=== PATIENT | male | born 1945 | race Caucasian/White ===

== ENCOUNTER 2021-01-11 16:14 | Inpatient (IN) | payer MEDICARE ==
[2021-01-11] VITALS (23 sets, daily range): BP systolic 57–80; BP diastolic 32–48
[~2021-01-11] VITALS: Ht 172.7 cm; Wt 52.4 kg
[2021-01-11] MEDS ORDERED: ZESTORETIC 20-1 EAC1 PO (16:23)
[2021-01-11] MEDS ORDERED: NORVASC10 MG PO (16:23)
[2021-01-11] MEDS ORDERED: COMBIVENT RESPIM4 GM INH (16:25)
[2021-01-11] MEDS ORDERED: SYMB160 PO (16:25)
[2021-01-11 17:29] LABS: MEAN CELL VOLUME 96.5 fl (80.0-94.0); MEAN CORPUSCULAR HGB 31.2 pg (27.0-31.0); MEAN CORPUSCULAR HGB CONC 32.3 g/dl (33.0-37.0); MEAN PLATELET VOLUME 9.1 fl (9.6-12.3); NUCLEATED RED BLOOD CELL 0.1 10*3/uL (0.0-0.0); NUCLEATED RED BLOOD CELL 0.5 % (0.0-0.0); PLATELET COUNT AUTOMATED 419 10*3/uL (130-400); RED BLOOD COUNT 1.73 10*6/uL (4.50-5.90); RED CELL DISTRI WIDTH 16.2 % (0-14.5); WHITE BLOOD COUNT 22.3 10*3/uL (4.8-10.8)
[2021-01-11 17:38] LABS: INTERNATIONAL NORM RATIO 1.1 (2.0-3.5)
[2021-01-11 17:45] LABS: ALBUMIN 2.6 gm/dl (3.1-4.5); ALKALINE PHOSPHATASE 59 U/L (45-117); BUN 83 mg/dl (7-24); CHLORIDE 90 mmol/L (98-107); CREATININE 1.76 mg/dL (0.70-1.30); SGOT/AST 140 IU/L (3-35); SGPT/ALT 76 U/L (12-78); SODIUM 126 mmol/L (136-145); TOTAL PROTEIN 5.5 gm/dL (6.4-8.2)
[2021-01-11 17:46] LABS: TROPONIN I < 0.015 ng/ml (<0.045)
[2021-01-11 17:48] LABS: HEMATOCRIT 16.7 % (42.0-52.0)
[2021-01-11 17:51] LABS: PLATELET SUFFICIENCY HIGH (NORMAL); TOTAL CELLS COUNTED 100 #CELLS
[2021-01-11 17:52] LABS: TARGET CELLS FEW
[2021-01-11 17:53] LABS: MICROCYTOSIS SLIGHT
[2021-01-11 20:49] LABS: BILIRUBIN Negative (Negative); BLOOD 1+ (Negative); CLARITY Clear (Clear); COLOR Yellow (Yellow); GLUCOSE Negative (Negative); KETONE Negative (Negative); LEUKO ESTERASE Negative (Negative); NITRITE Negative (Negative); SPECIFIC GRAVITY 1.015 (1.001-1.030); UROBILINOGEN 0.2 E.U./dl (0.0-1.0)
[2021-01-11 21:01] LABS: BACTERIA 1+; RBC 0-2 rbc/hpf (0-2)
[2021-01-11] MEDS ORDERED: NASAL SPRAY ORI30 ML NAS (22:58)
[2021-01-12] VITALS (16 sets, daily range): BP systolic 67–88; BP diastolic 37–56
[2021-01-12 00:19] LABS: HEMATOCRIT 24.3 % (42.0-52.0); MEAN CELL VOLUME 94.9 fl (80.0-94.0); MEAN CORPUSCULAR HGB 30.9 pg (27.0-31.0); MEAN CORPUSCULAR HGB CONC 32.5 g/dl (33.0-37.0); MEAN PLATELET VOLUME 8.9 fl (9.6-12.3); NUCLEATED RED BLOOD CELL 0.1 10*3/uL (0.0-0.0); NUCLEATED RED BLOOD CELL 0.6 % (0.0-0.0); PLATELET COUNT AUTOMATED 350 10*3/uL (130-400); RED BLOOD COUNT 2.56 10*6/uL (4.50-5.90); RED CELL DISTRI WIDTH 15.7 % (0-14.5); WHITE BLOOD COUNT 19.6 10*3/uL (4.8-10.8)
[2021-01-12 00:39] LABS: PLATELET SUFFICIENCY NORMAL (NORMAL); POLYCHROMASIA SLIGHT; TOTAL CELLS COUNTED 100 #CELLS
[2021-01-12 04:57] LABS: ALBUMIN 2.3 gm/dl (3.1-4.5); ALKALINE PHOSPHATASE 56 U/L (45-117); CHLORIDE 98 mmol/L (98-107); CHOLESTEROL 84 mg/dL (<200); CREATININE 1.19 mg/dL (0.70-1.30); FREE T4 1.08 ng/dl (0.76-1.46); HDL CHOLESTEROL 49 mg/dl (40-60); LDL CHOLESTEROL 20 mg/dL (9-159); POTASSIUM 3.9 mmol/L (3.5-5.1); SGOT/AST 162 IU/L (3-35); SGPT/ALT 87 U/L (12-78); SODIUM 131 mmol/L (136-145); TOTAL PROTEIN 5.1 gm/dL (6.4-8.2); TRIGLYCERIDES 75 mg/dl (<150); VLDL CHOLESTEROL 15 mg/dL (6-40)
[2021-01-12 05:03] LABS: THYROID STIM HORMONE (HS) 0.829 uIU/ml (0.358-4.75)
[2021-01-12 05:13] LABS: BUN 63 mg/dl (7-24)
[2021-01-12 06:15] LABS: ACT PARTIAL THROMBO TIME 33.3 SECONDS (20.0-32.1)
[2021-01-12 06:20] LABS: HEMATOCRIT 22.9 % (42.0-52.0); MEAN CELL VOLUME 94.2 fl (80.0-94.0); MEAN CORPUSCULAR HGB 30.5 pg (27.0-31.0); MEAN CORPUSCULAR HGB CONC 32.3 g/dl (33.0-37.0); MEAN PLATELET VOLUME 9.5 fl (9.6-12.3); NUCLEATED RED BLOOD CELL 0.2 10*3/uL (0.0-0.0); NUCLEATED RED BLOOD CELL 0.8 % (0.0-0.0); PLATELET COUNT AUTOMATED 366 10*3/uL (130-400); RED BLOOD COUNT 2.43 10*6/uL (4.50-5.90); RED CELL DISTRI WIDTH 15.5 % (0-14.5); WHITE BLOOD COUNT 17.9 10*3/uL (4.8-10.8)
[2021-01-12 07:15] LABS: VITAMIN D, 25-HYDROXY 10.2 ng/mL (30-100)
[2021-01-12 07:17] LABS: TOTAL CELLS COUNTED 100 #CELLS
[2021-01-12 07:18] LABS: BURR CELLS FEW; PLATELET SUFFICIENCY NORMAL (NORMAL); POLYCHROMASIA SLIGHT; TARGET CELLS FEW; TOXIC GRANULATION SLIGHT
[2021-01-12 14:45] LABS: HEMATOCRIT 26.7 % (42.0-52.0)
[2021-01-12 22:24] LABS: HEMATOCRIT 26.8 % (42.0-52.0); MEAN CORPUSCULAR HGB 30.1 pg (27.0-31.0); MEAN CORPUSCULAR HGB CONC 31.7 g/dl (33.0-37.0); MEAN PLATELET VOLUME 9.4 fl (9.6-12.3); NUCLEATED RED BLOOD CELL 0.2 10*3/uL (0.0-0.0); NUCLEATED RED BLOOD CELL 1.9 % (0.0-0.0); PLATELET COUNT AUTOMATED 324 10*3/uL (130-400); RED BLOOD COUNT 2.82 10*6/uL (4.50-5.90); RED CELL DISTRI WIDTH 16.1 % (0-14.5); WHITE BLOOD COUNT 12.7 10*3/uL (4.8-10.8)
[2021-01-12 22:51] LABS: PLATELET SUFFICIENCY NORMAL (NORMAL); TOTAL CELLS COUNTED 100 #CELLS
[2021-01-12 22:52] LABS: BURR CELLS MODERATE; POLYCHROMASIA SLIGHT
[2021-01-13] VITALS (13 sets, daily range): BP systolic 84–126; BP diastolic 42–90
[2021-01-13 05:02] LABS: ALBUMIN 2.2 gm/dl (3.1-4.5); ALKALINE PHOSPHATASE 56 U/L (45-117); CHLORIDE 106 mmol/L (98-107); CREATININE 0.81 mg/dL (0.70-1.30); POTASSIUM 3.9 mmol/L (3.5-5.1); SGOT/AST 111 IU/L (3-35); SGPT/ALT 98 U/L (12-78); SODIUM 137 mmol/L (136-145); TOTAL PROTEIN 4.9 gm/dL (6.4-8.2)
[2021-01-13 05:03] LABS: BUN 29 mg/dl (7-24)
[2021-01-13 06:14] LABS: HEMATOCRIT 25.5 % (42.0-52.0); MEAN CELL VOLUME 94.4 fl (80.0-94.0); MEAN CORPUSCULAR HGB 30.4 pg (27.0-31.0); MEAN CORPUSCULAR HGB CONC 32.2 g/dl (33.0-37.0); MEAN PLATELET VOLUME 9.4 fl (9.6-12.3); NUCLEATED RED BLOOD CELL 0.4 10*3/uL (0.0-0.0); NUCLEATED RED BLOOD CELL 3.1 % (0.0-0.0); PLATELET COUNT AUTOMATED 340 10*3/uL (130-400)
[2021-01-13 06:45] LABS: BURR CELLS MODERATE; PLATELET SUFFICIENCY NORMAL (NORMAL); POLYCHROMASIA SLIGHT; TARGET CELLS FEW; TOTAL CELLS COUNTED 100 #CELLS
[2021-01-13 06:46] LABS: SCHISTOCYTES FEW
[2021-01-13 19:42] LABS: HEMATOCRIT 29.9 % (42.0-52.0); MEAN CELL VOLUME 94.3 fl (80.0-94.0); MEAN CORPUSCULAR HGB 30.3 pg (27.0-31.0); MEAN CORPUSCULAR HGB CONC 32.1 g/dl (33.0-37.0); NUCLEATED RED BLOOD CELL 0.7 10*3/uL (0.0-0.0); NUCLEATED RED BLOOD CELL 4.2 % (0.0-0.0); PLATELET COUNT AUTOMATED 326 10*3/uL (130-400); RED CELL DISTRI WIDTH 15.8 % (0-14.5); WHITE BLOOD COUNT 15.6 10*3/uL (4.8-10.8)
[2021-01-13 19:45] LABS: RED BLOOD COUNT 3.18 10*6/uL (4.50-5.90)
[2021-01-13 20:03] LABS: PLATELET SUFFICIENCY NORMAL (NORMAL); TOTAL CELLS COUNTED 100 #CELLS
[2021-01-13 20:04] LABS: BURR CELLS FEW
[2021-01-14] VITALS: BP 95/60
[2021-01-14 00:27] LABS: HEMATOCRIT 28.2 % (42.0-52.0); MEAN CORPUSCULAR HGB CONC 31.9 g/dl (33.0-37.0); MEAN PLATELET VOLUME 8.8 fl (9.6-12.3); NUCLEATED RED BLOOD CELL 0.6 10*3/uL (0.0-0.0); NUCLEATED RED BLOOD CELL 4.1 % (0.0-0.0); PLATELET COUNT AUTOMATED 306 10*3/uL (130-400); RED CELL DISTRI WIDTH 15.7 % (0-14.5); WHITE BLOOD COUNT 15.3 10*3/uL (4.8-10.8)
[2021-01-14 00:46] LABS: PLATELET SUFFICIENCY NORMAL (NORMAL); TOTAL CELLS COUNTED 100 #CELLS
[2021-01-14 04:00] VITALS: BP 98/53
[2021-01-14 06:44] LABS: HEMATOCRIT 30.2 % (42.0-52.0); MEAN CELL VOLUME 95.3 fl (80.0-94.0); MEAN CORPUSCULAR HGB CONC 31.5 g/dl (33.0-37.0); MEAN PLATELET VOLUME 9.1 fl (9.6-12.3); NUCLEATED RED BLOOD CELL 0.7 10*3/uL (0.0-0.0); NUCLEATED RED BLOOD CELL 4.4 % (0.0-0.0); PLATELET COUNT AUTOMATED 332 10*3/uL (130-400); RED BLOOD COUNT 3.17 10*6/uL (4.50-5.90); RED CELL DISTRI WIDTH 15.6 % (0-14.5); WHITE BLOOD COUNT 15.6 10*3/uL (4.8-10.8)
[2021-01-14 06:55] LABS: ALBUMIN 2.3 gm/dl (3.1-4.5); ALKALINE PHOSPHATASE 58 U/L (45-117); CHLORIDE 103 mmol/L (98-107); POTASSIUM 4.1 mmol/L (3.5-5.1); SGOT/AST 66 IU/L (3-35); SGPT/ALT 103 U/L (12-78); SODIUM 136 mmol/L (136-145); TOTAL PROTEIN 5.1 gm/dL (6.4-8.2)
[2021-01-14 06:57] LABS: BUN 17 mg/dl (7-24)
[2021-01-14 07:43] LABS: PLATELET SUFFICIENCY NORMAL (NORMAL); POLYCHROMASIA SLIGHT; TOTAL CELLS COUNTED 100 #CELLS
[2021-01-14 08:00] VITALS: BP 104/68
[2021-01-14 12:00] VITALS: BP 110/63
[2021-01-14 12:53] LABS: HEMATOCRIT 33.7 % (42.0-52.0); MEAN CORPUSCULAR HGB 30.2 pg (27.0-31.0); MEAN CORPUSCULAR HGB CONC 31.5 g/dl (33.0-37.0); NUCLEATED RED BLOOD CELL 0.5 10*3/uL (0.0-0.0); NUCLEATED RED BLOOD CELL 2.9 % (0.0-0.0); PLATELET COUNT AUTOMATED 358 10*3/uL (130-400); RED BLOOD COUNT 3.51 10*6/uL (4.50-5.90); RED CELL DISTRI WIDTH 15.6 % (0-14.5); WHITE BLOOD COUNT 16.7 10*3/uL (4.8-10.8)
[2021-01-14 13:37] LABS: PLATELET SUFFICIENCY NORMAL (NORMAL); POLYCHROMASIA MODERATE; SCHISTOCYTES FEW; TOTAL CELLS COUNTED 100 #CELLS
[2021-01-14 16:00] VITALS: BP 98/42
[2021-01-14 18:03] LABS: HEMATOCRIT 32.1 % (42.0-52.0); MEAN CELL VOLUME 95.5 fl (80.0-94.0); MEAN CORPUSCULAR HGB 30.4 pg (27.0-31.0); MEAN CORPUSCULAR HGB CONC 31.8 g/dl (33.0-37.0); MEAN PLATELET VOLUME 8.9 fl (9.6-12.3); NUCLEATED RED BLOOD CELL 0.5 10*3/uL (0.0-0.0); NUCLEATED RED BLOOD CELL 3.1 % (0.0-0.0); PLATELET COUNT AUTOMATED 346 10*3/uL (130-400); RED BLOOD COUNT 3.36 10*6/uL (4.50-5.90); RED CELL DISTRI WIDTH 15.6 % (0-14.5); WHITE BLOOD COUNT 14.9 10*3/uL (4.8-10.8)
[2021-01-14 18:40] LABS: TOTAL CELLS COUNTED 100 #CELLS
[2021-01-14 18:41] LABS: POLYCHROMASIA SLIGHT
[2021-01-14 18:42] LABS: SCHISTOCYTES FEW
[2021-01-14 18:43] LABS: DIFFERENTIAL COMMENT COMMENT:NRBC PRESENT
[2021-01-14 18:57] LABS: PLATELET SUFFICIENCY NORMAL (NORMAL)
[2021-01-14 20:00] VITALS: BP 109/71
[2021-01-15] VITALS: BP 118/68
[2021-01-15 00:20] LABS: HEMATOCRIT 33.6 % (42.0-52.0); MEAN CELL VOLUME 95.7 fl (80.0-94.0); MEAN CORPUSCULAR HGB 30.2 pg (27.0-31.0); MEAN CORPUSCULAR HGB CONC 31.5 g/dl (33.0-37.0); MEAN PLATELET VOLUME 8.9 fl (9.6-12.3); NUCLEATED RED BLOOD CELL 0.5 10*3/uL (0.0-0.0); NUCLEATED RED BLOOD CELL 2.9 % (0.0-0.0); PLATELET COUNT AUTOMATED 360 10*3/uL (130-400); RED BLOOD COUNT 3.51 10*6/uL (4.50-5.90); RED CELL DISTRI WIDTH 15.5 % (0-14.5); WHITE BLOOD COUNT 17.4 10*3/uL (4.8-10.8)
[2021-01-15 00:51] LABS: PLATELET SUFFICIENCY NORMAL (NORMAL); TOTAL CELLS COUNTED 100 #CELLS
[2021-01-15 06:22] LABS: HEMATOCRIT 35.1 % (42.0-52.0); MEAN CELL VOLUME 96.2 fl (80.0-94.0); MEAN CORPUSCULAR HGB 29.9 pg (27.0-31.0); MEAN CORPUSCULAR HGB CONC 31.1 g/dl (33.0-37.0); MEAN PLATELET VOLUME 8.9 fl (9.6-12.3); NUCLEATED RED BLOOD CELL 0.5 10*3/uL (0.0-0.0); NUCLEATED RED BLOOD CELL 3.2 % (0.0-0.0); PLATELET COUNT AUTOMATED 370 10*3/uL (130-400); RED BLOOD COUNT 3.65 10*6/uL (4.50-5.90); RED CELL DISTRI WIDTH 15.4 % (0-14.5); WHITE BLOOD COUNT 15.5 10*3/uL (4.8-10.8)
[2021-01-15 06:37] LABS: PLATELET SUFFICIENCY NORMAL (NORMAL); POLYCHROMASIA SLIGHT; TOTAL CELLS COUNTED 100 #CELLS
[2021-01-15 06:42] LABS: ALBUMIN 2.5 gm/dl (3.1-4.5); ALKALINE PHOSPHATASE 61 U/L (45-117); BUN 22 mg/dl (7-24); CHLORIDE 101 mmol/L (98-107); CREATININE 0.55 mg/dL (0.70-1.30); POTASSIUM 4.4 mmol/L (3.5-5.1); SGOT/AST 43 IU/L (3-35); SGPT/ALT 110 U/L (12-78); SODIUM 137 mmol/L (136-145); TOTAL PROTEIN 5.6 gm/dL (6.4-8.2)
[2021-01-15 08:00] VITALS: BP 130/70
[2021-01-15 12:00] VITALS: BP 126/87
[2021-01-15 16:00] VITALS: BP 120/74
[2021-01-15 20:00] VITALS: BP 118/75
[2021-01-16] VITALS: BP 121/77
[2021-01-16 06:06] LABS: MEAN CELL VOLUME 97.7 fl (80.0-94.0); MEAN CORPUSCULAR HGB 30.1 pg (27.0-31.0); MEAN CORPUSCULAR HGB CONC 30.8 g/dl (33.0-37.0); MEAN PLATELET VOLUME 9.2 fl (9.6-12.3); NUCLEATED RED BLOOD CELL 0.2 10*3/uL (0.0-0.0); NUCLEATED RED BLOOD CELL 0.8 % (0.0-0.0); PLATELET COUNT AUTOMATED 330 10*3/uL (130-400); RED BLOOD COUNT 3.99 10*6/uL (4.50-5.90); RED CELL DISTRI WIDTH 14.8 % (0-14.5); WHITE BLOOD COUNT 20.7 10*3/uL (4.8-10.8)
[2021-01-16 06:09] LABS: ALBUMIN 2.4 gm/dl (3.1-4.5); ALKALINE PHOSPHATASE 63 U/L (45-117); BUN 24 mg/dl (7-24); CHLORIDE 98 mmol/L (98-107); CREATININE 0.46 mg/dL (0.70-1.30); POTASSIUM 4.5 mmol/L (3.5-5.1); SGOT/AST 33 IU/L (3-35); SGPT/ALT 96 U/L (12-78); SODIUM 133 mmol/L (136-145); TOTAL PROTEIN 5.6 gm/dL (6.4-8.2)
[2021-01-16 07:25] LABS: PLATELET SUFFICIENCY NORMAL (NORMAL); POLYCHROMASIA SLIGHT; TOTAL CELLS COUNTED 100 #CELLS
[2021-01-16 08:00] VITALS: BP 130/64
[2021-01-16 12:00] VITALS: BP 132/83
[2021-01-16 16:02] VITALS: BP 125/74
[2021-01-16 20:03] VITALS: BP 114/67
[2021-01-17] VITALS: BP 128/77
[2021-01-17 06:48] LABS: ALBUMIN 2.6 gm/dl (3.1-4.5); ALKALINE PHOSPHATASE 67 U/L (45-117); BUN 26 mg/dl (7-24); CHLORIDE 91 mmol/L (98-107); CREATININE 0.48 mg/dL (0.70-1.30); POTASSIUM 4.6 mmol/L (3.5-5.1); SGOT/AST 31 IU/L (3-35); SGPT/ALT 85 U/L (12-78); SODIUM 133 mmol/L (136-145); TOTAL PROTEIN 5.7 gm/dL (6.4-8.2)
[2021-01-17 08:00] VITALS: BP 103/70
[2021-01-17 08:22] LABS: ABG BASE EXCESS 18.7 mmol/L (-2.0-2.0); ARTERIAL BLOOD GAS PH 7.442 (7.35-7.45); ARTERIAL BLOOD GAS PO2 80.8 (80-90)
[2021-01-17 12:00] VITALS: BP 109/67
[2021-01-17 13:48] LABS: HEMATOCRIT 37.2 % (42.0-52.0); MEAN CELL VOLUME 98.2 fl (80.0-94.0); MEAN CORPUSCULAR HGB 29.8 pg (27.0-31.0); MEAN CORPUSCULAR HGB CONC 30.4 g/dl (33.0-37.0); MEAN PLATELET VOLUME 9.2 fl (9.6-12.3); NUCLEATED RED BLOOD CELL 0.1 10*3/uL (0.0-0.0); NUCLEATED RED BLOOD CELL 0.2 % (0.0-0.0); PLATELET COUNT AUTOMATED 322 10*3/uL (130-400); RED BLOOD COUNT 3.79 10*6/uL (4.50-5.90); RED CELL DISTRI WIDTH 14.6 % (0-14.5); WHITE BLOOD COUNT 22.3 10*3/uL (4.8-10.8)
[2021-01-17 14:04] LABS: ALBUMIN 2.3 gm/dl (3.1-4.5); BUN 26 mg/dl (7-24); CHLORIDE 90 mmol/L (98-107); CREATININE 0.58 mg/dL (0.70-1.30); POTASSIUM 4.5 mmol/L (3.5-5.1); SGOT/AST 33 IU/L (3-35); SGPT/ALT 86 U/L (12-78); SODIUM 132 mmol/L (136-145)
[2021-01-17 14:05] LABS: TOTAL CELLS COUNTED 100 #CELLS
[2021-01-17 14:06] LABS: ALKALINE PHOSPHATASE 67 U/L (45-117); BURR CELLS FEW; PLATELET SUFFICIENCY NORMAL (NORMAL); ROULEAUX SLIGHT; TOTAL PROTEIN 5.1 gm/dL (6.4-8.2)
[2021-01-17 16:00] VITALS: BP 117/70
[2021-01-17 20:00] VITALS: BP 120/63
[2021-01-18] VITALS: BP 116/69
[2021-01-18 06:00] LABS: BASO % 0.1 % (0.0-1.0); HEMATOCRIT 34.3 % (42.0-52.0); LYMPH # 0.6 10*3/uL (1.3-4.4); LYMPH % 2.8 % (27.0-41.0); MEAN CELL VOLUME 96.1 fl (80.0-94.0); MEAN CORPUSCULAR HGB 29.4 pg (27.0-31.0); MEAN CORPUSCULAR HGB CONC 30.6 g/dl (33.0-37.0); MEAN PLATELET VOLUME 9.4 fl (9.6-12.3); MONO # 1.5 10*3/uL (0.1-1.0); MONO % 6.9 % (3.0-9.0); NEUT # 19.1 10*3/uL (2.3-7.9); NEUT % 89.1 % (47.0-73.0); NUCLEATED RED BLOOD CELL 0.1 % (0.0-0.0); PLATELET COUNT AUTOMATED 296 10*3/uL (130-400); RED BLOOD COUNT 3.57 10*6/uL (4.50-5.90); RED CELL DISTRI WIDTH 14.2 % (0-14.5); WHITE BLOOD COUNT 21.4 10*3/uL (4.8-10.8)
[2021-01-18 06:16] LABS: ALBUMIN 2.2 gm/dl (3.1-4.5); ALKALINE PHOSPHATASE 62 U/L (45-117); BUN 20 mg/dl (7-24); CHLORIDE 90 mmol/L (98-107); CREATININE 0.36 mg/dL (0.70-1.30); POTASSIUM 4.6 mmol/L (3.5-5.1); SGOT/AST 19 IU/L (3-35); SGPT/ALT 69 U/L (12-78); SODIUM 131 mmol/L (136-145); TOTAL PROTEIN 4.7 gm/dL (6.4-8.2)
[2021-01-18 08:00] VITALS: BP 100/60; BP 110/62
[2021-01-18 08:48] LABS: ABG BASE EXCESS 11.5 mmol/L (-2.0-2.0); ARTERIAL BLOOD GAS PH 7.524 (7.35-7.45); ARTERIAL BLOOD GAS PO2 87.9 (80-90)
[2021-01-18 12:00] VITALS: BP 100/55
[2021-01-18 16:00] VITALS: BP 108/67
[2021-01-18 20:10] VITALS: BP 100/56
[2021-01-19] VITALS: BP 89/70
[2021-01-19 06:41] LABS: HEMATOCRIT 39.4 % (42.0-52.0); MEAN CELL VOLUME 94.5 fl (80.0-94.0); MEAN CORPUSCULAR HGB 29.7 pg (27.0-31.0); MEAN CORPUSCULAR HGB CONC 31.5 g/dl (33.0-37.0); MEAN PLATELET VOLUME 9.3 fl (9.6-12.3); NUCLEATED RED BLOOD CELL 0.1 % (0.0-0.0); PLATELET COUNT AUTOMATED 322 10*3/uL (130-400); RED BLOOD COUNT 4.17 10*6/uL (4.50-5.90); RED CELL DISTRI WIDTH 14.2 % (0-14.5); WHITE BLOOD COUNT 20.3 10*3/uL (4.8-10.8)
[2021-01-19 07:13] LABS: BUN 17 mg/dl (7-24); CHLORIDE 87 mmol/L (98-107); CREATININE 0.61 mg/dL (0.70-1.30); POTASSIUM 3.9 mmol/L (3.5-5.1); SODIUM 129 mmol/L (136-145)
[2021-01-19 07:48] LABS: TOTAL CELLS COUNTED 100 #CELLS
[2021-01-19 07:49] LABS: PLATELET SUFFICIENCY NORMAL (NORMAL); TOXIC GRANULATION SLIGHT; VACUOLATION OF NEUTROPHILS SLIGHT
[2021-01-19 08:00] VITALS: BP 90/58
[2021-01-19 12:00] VITALS: BP 88/60
[2021-01-19 16:00] VITALS: BP 95/50; BP 95/94
[2021-01-19 20:00] VITALS: BP 120/69
[2021-01-20] VITALS (39 sets, daily range): BP systolic 43–110; BP diastolic 14–67
[2021-01-20 06:07] LABS: HEMATOCRIT 27.8 % (42.0-52.0); MEAN CELL VOLUME 95.9 fl (80.0-94.0); MEAN CORPUSCULAR HGB 29.7 pg (27.0-31.0); MEAN CORPUSCULAR HGB CONC 30.9 g/dl (33.0-37.0); MEAN PLATELET VOLUME 9.7 fl (9.6-12.3); PLATELET COUNT AUTOMATED 263 10*3/uL (130-400); WHITE BLOOD COUNT 16.1 10*3/uL (4.8-10.8)
[2021-01-20 06:28] LABS: CHLORIDE 92 mmol/L (98-107); POTASSIUM 3.6 mmol/L (3.5-5.1); SODIUM 131 mmol/L (136-145)
[2021-01-20 06:35] LABS: BUN 14 mg/dl (7-24); CREATININE 0.55 mg/dL (0.70-1.30)
[2021-01-20 06:40] LABS: PLATELET SUFFICIENCY NORMAL (NORMAL); TOTAL CELLS COUNTED 100 #CELLS; TOXIC GRANULATION SLIGHT
[2021-01-20 15:58] LABS: HEMATOCRIT 30.6 % (42.0-52.0); MEAN PLATELET VOLUME 9.5 fl (9.6-12.3); RED BLOOD COUNT 3.38 10*6/uL (4.50-5.90); RED CELL DISTRI WIDTH 16.2 % (0-14.5); WHITE BLOOD COUNT 20.8 10*3/uL (4.8-10.8)
[2021-01-20 16:22] LABS: MEAN CELL VOLUME 90.5 fl (80.0-94.0)
[2021-01-20 16:23] LABS: PLATELET COUNT AUTOMATED 194 10*3/uL (130-400)
[2021-01-20 16:57] LABS: TOTAL CELLS COUNTED 100 #CELLS
[2021-01-20 16:59] LABS: PLATELET SUFFICIENCY NORMAL (NORMAL); TOXIC GRANULATION SLIGHT
[2021-01-20 17:07] LABS: OVALOCYTES FEW; TARGET CELLS FEW
[2021-01-20 19:47] LABS: HEMATOCRIT 30.4 % (42.0-52.0); MEAN CORPUSCULAR HGB CONC 31.9 g/dl (33.0-37.0); MEAN PLATELET VOLUME 9.7 fl (9.6-12.3); PLATELET COUNT AUTOMATED 189 10*3/uL (130-400); RED BLOOD COUNT 3.34 10*6/uL (4.50-5.90); RED CELL DISTRI WIDTH 16.2 % (0-14.5); WHITE BLOOD COUNT 20.2 10*3/uL (4.8-10.8)
[2021-01-20 20:33] LABS: TOTAL CELLS COUNTED 100 #CELLS
[2021-01-20 20:34] LABS: PLATELET SUFFICIENCY NORMAL (NORMAL)
[2021-01-20 20:37] LABS: TOXIC GRANULATION SLIGHT
[2021-01-20 20:38] LABS: TARGET CELLS FEW
[2021-01-21] VITALS (8 sets, daily range): BP systolic 62–86; BP diastolic 36–54
[2021-01-21] LABS: HEMATOCRIT 22.5 % (42.0-52.0); MEAN CORPUSCULAR HGB 29.3 pg (27.0-31.0); MEAN CORPUSCULAR HGB CONC 31.6 g/dl (33.0-37.0); MEAN PLATELET VOLUME 9.5 fl (9.6-12.3); RED BLOOD COUNT 2.42 10*6/uL (4.50-5.90); RED CELL DISTRI WIDTH 15.7 % (0-14.5)
[2021-01-21 00:05] LABS: PLATELET COUNT AUTOMATED 129 10*3/uL (130-400)
[2021-01-21 00:21] LABS: ALBUMIN 1.4 gm/dl (3.1-4.5); ALKALINE PHOSPHATASE 37 U/L (45-117); CHLORIDE 101 mmol/L (98-107); CREATININE 0.64 mg/dL (0.70-1.30); SGOT/AST 16 IU/L (3-35); SGPT/ALT 36 U/L (12-78); SODIUM 134 mmol/L (136-145); TOTAL PROTEIN 2.8 gm/dL (6.4-8.2)
[2021-01-21 00:26] LABS: BUN 29 mg/dl (7-24); POTASSIUM 5.4 mmol/L (3.5-5.1)
[2021-01-21 00:41] LABS: MICROCYTOSIS SLIGHT; PLATELET SUFFICIENCY LOW (NORMAL); TOTAL CELLS COUNTED 100 #CELLS
== END 2021-01-21 04:25 | disposition short-term general hospital (02) | DRG 871 ==
LOC: ED 16:14 → 4E 21:36 → EDHOLD 21:36 → ICCU 21:36 → 4E 01-15 22:27 → ICCU 01-20 08:54
PROVIDERS: Hospitalist; Internal Medicine; Internal Medicine Gastroenterology; Physician Assistant; Student in an Organized Health Care Education/Training Program; ADMIT Family Medicine; ATTEND Family Medicine
PROC: 30233N1 Transfusion of Nonautologous Red Blood Cells into Peripheral Vein, Percutaneous Approach (ICD-10-PCS; 2021-01-11)
PROC: 0DB78ZX Excision of Stomach, Pylorus, Via Natural or Artificial Opening Endoscopic, Diagnostic (ICD-10-PCS; principal; 2021-01-12)
PROC: 5A09357 Assistance with Respiratory Ventilation, Less than 24 Consecutive Hours, Continuous Positive Airway Pressure (ICD-10-PCS; 2021-01-18)
PROC: 5A09357 Assistance with Respiratory Ventilation, Less than 24 Consecutive Hours, Continuous Positive Airway Pressure (ICD-10-PCS; 2021-01-19)
PROC: 5A09357 Assistance with Respiratory Ventilation, Less than 24 Consecutive Hours, Continuous Positive Airway Pressure (ICD-10-PCS; 2021-01-20)
PROC: 02HV33Z Insertion of Infusion Device into Superior Vena Cava, Percutaneous Approach (ICD-10-PCS; 2021-01-20)
PROC: B548ZZA Ultrasonography of Superior Vena Cava, Guidance (ICD-10-PCS; 2021-01-20)
DX: A41.9 Sepsis, unspecified organism (principal); N17.0 Acute kidney failure with tubular necrosis; E43 Unspecified severe protein-calorie malnutrition; K26.4 Chronic or unspecified duodenal ulcer with hemorrhage; R65.21 Severe sepsis with septic shock; R57.8 Other shock; E87.1 Hypo-osmolality and hyponatremia; J44.1 Chronic obstructive pulmonary disease with (acute) exacerbation; N17.9 Acute kidney failure, unspecified; Z68.1 Body mass index [BMI] 19.9 or less, adult; I95.9 Hypotension, unspecified; D53.9 Nutritional anemia, unspecified; E83.41 Hypermagnesemia; K44.9 Diaphragmatic hernia without obstruction or gangrene; E86.0 Dehydration; D47.3 Essential (hemorrhagic) thrombocythemia; E87.8 Other disorders of electrolyte and fluid balance, not elsewhere classified; R73.9 Hyperglycemia, unspecified; R74.01 Elevation of levels of liver transaminase levels; I10 Essential (primary) hypertension; E86.9 Volume depletion, unspecified; K29.70 Gastritis, unspecified, without bleeding; R33.9 Retention of urine, unspecified; Z79.899 Other long term (current) drug therapy; Z87.891 Personal history of nicotine dependence; Z82.49 Family history of ischemic heart disease and other diseases of the circulatory system